=== PATIENT | female | born 2000 | race Caucasian/White ===

== ENCOUNTER 2022-04-02 16:39 | Emergency (ER) | payer OTHER ==
[~2022-04-02] VITALS: Wt 122.5 kg
[2022-04-02 17:21] VITALS: BP 138/88
== END 2022-04-02 20:55 | disposition home or self-care (01) ==
LOC: ED 16:39
DX: S16.1XXA Strain of muscle, fascia and tendon at neck level, initial encounter (principal); S29.012A Strain of muscle and tendon of back wall of thorax, initial encounter; V49.88XA Car occupant (driver) (passenger) injured in other specified transport accidents, initial encounter; Y93.89 Activity, other specified; Y92.89 Other specified places as the place of occurrence of the external cause; Y99.9 Unspecified external cause status